=== PATIENT | female | born 1980 | race Caucasian/White ===

== ENCOUNTER 2019-03-03 01:34 | Inpatient (IN) | payer MEDICAID ==
[~2019-03-03] VITALS: Ht 160 cm; Wt 69.1 kg
[~2019-03-03 01:34] MED LIST: PREN-93 PO
[2019-03-03 01:46] VITALS: BP 117/59; PULSE 99; RESP 18; Ht 160 cm; Wt 69.1 kg
[2019-03-03] MEDS ORDERED: ONDANSETRON 4 MG INJ IV PRN (02:30)
[2019-03-03] MEDS ORDERED: ACETAMINOPHEN 325 MG TAB PO PRN (02:30)
[2019-03-03] MEDS ORDERED: AL HYDROX/MG HYDROX/SIMETH 30 ML CUP PO PRN (02:30)
[2019-03-03] MEDS: LACTATED RINGER'S 1,000 ML IV SCH ×3 (03:44→18:52)
[2019-03-03] MEDS: FERROUS SULFATE (EC) 325 MG TAB PO SCH (09:10)
[2019-03-03] MEDS: PRENATAL VITAMIN PO SCH (09:10)
[2019-03-04] MEDS: LACTATED RINGER'S 1,000 ML IV SCH ×2 (02:17→10:12)
[2019-03-04] MEDS: FERROUS SULFATE (EC) 325 MG TAB PO SCH (09:23)
[2019-03-04] MEDS: PRENATAL VITAMIN PO SCH (09:23)
== END 2019-03-04 13:53 | disposition home or self-care (01) | DRG 833 ==
LOC: OBT 01:34 → L-D 01:38 → OBT 02:10 → PP1 04:57
PROVIDERS: ADMIT Obstetrics & Gynecology; ATTEND Obstetrics & Gynecology
DX: O9A.312 Physical abuse complicating pregnancy, second trimester (principal); S39.91XA Unspecified injury of abdomen, initial encounter; O09.523 Supervision of elderly multigravida, third trimester; Y07.01 Husband, perpetrator of maltreatment and neglect; Z3A.27 27 weeks gestation of pregnancy
CPT/HCPCS: 76815; 76817; 80053; 80307; 81003; 84560; 85025; 85460; 86850; 86900; 86901; G0463; J2405; J7120